=== PATIENT | male | born 2000 | race African-American/Black ===

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

== ENCOUNTER 2020-03-29 04:31 | Emergency (ER) | payer OTHER ==
[~2020-03-29] VITALS: Ht 175.2 cm; Wt 78.0 kg
== END 2020-03-29 08:00 | disposition home or self-care (01) ==
LOC: ED 04:31
DX: T39.1X1A Poisoning by 4-Aminophenol derivatives, accidental (unintentional), initial encounter (principal); M06.9 Rheumatoid arthritis, unspecified; Y92.89 Other specified places as the place of occurrence of the external cause

== ENCOUNTER 2021-09-07 09:36 | Emergency (ER) | payer OTHER ==
[~2021-09-07] VITALS: Ht 172.7 cm; Wt 79.4 kg
[2021-09-07] MEDS ORDERED: FLONASE ALLERG9.9 ML NAS (13:32)
[2021-09-07] MEDS ORDERED: TESSALON PERLE100 M1 PO (13:32)
== END 2021-09-07 13:32 | disposition home or self-care (01) ==
LOC: ED 09:36
DX: J06.9 Acute upper respiratory infection, unspecified (principal); Z20.822 Contact with and (suspected) exposure to COVID-19

== ENCOUNTER 2022-09-05 17:16 | Emergency (ER) | payer OTHER ==
[~2022-09-05] VITALS: Ht 175.2 cm; Wt 86.2 kg
[~2022-09-05 17:16] MED LIST: FLONASE ALLERG9.9 ML NAS; TESSALON PERLE100 M1 PO
== END 2022-09-05 20:05 | disposition home or self-care (01) ==
LOC: ED 17:16
DX: J02.8 Acute pharyngitis due to other specified organisms (principal); Z20.822 Contact with and (suspected) exposure to COVID-19; B97.89 Other viral agents as the cause of diseases classified elsewhere; Z79.899 Other long term (current) drug therapy; Z90.89 Acquired absence of other organs

== ENCOUNTER 2025-10-14 22:43 | Emergency (ER) | payer SELFPAY ==
[~2025-10-14] VITALS: Ht 175.2 cm; Wt 77.1 kg
== END 2025-10-15 00:50 | disposition home or self-care (01) ==
LOC: ED 22:43
DX: J10.1 Influenza due to other identified influenza virus with other respiratory manifestations (principal); Z20.822 Contact with and (suspected) exposure to COVID-19; Z90.89 Acquired absence of other organs